=== PATIENT | male | born 1975 | race African-American/Black ===

== ENCOUNTER 2020-10-16 19:38 | Emergency (ER) | payer SELFPAY ==
[2020-10-16] MEDS ORDERED: Ketorolac Tromethamine 30 MG/ML VIAL ONE (21:42)
[2020-10-16] MEDS ORDERED: Cyclobenzaprine 10 MG TAB ONE (21:43)
== END 2020-10-16 21:48 | disposition home or self-care (01) ==
LOC: CSHERS 19:38
DX: S76.911A Strain of unspecified muscles, fascia and tendons at thigh level, right thigh, initial encounter (principal); X50.0XXA Overexertion from strenuous movement or load, initial encounter; Y93.64 Activity, baseball
CPT/HCPCS: 99283; J1885

== ENCOUNTER 2022-04-15 23:20 | Emergency (ER) | payer SELFPAY ==
[2022-04-16] MEDS ORDERED: Acetaminophen 500 MG TAB ONE (00:13)
[2022-04-16 01:46] LABS: SARS-CoV-2 NAA Rapid Test Not Detected (NotDetected)
== END 2022-04-16 00:40 | disposition home or self-care (01) ==
LOC: CSHERS 23:20
DX: J10.1 Influenza due to other identified influenza virus with other respiratory manifestations (principal); Z20.822 Contact with and (suspected) exposure to COVID-19
CPT/HCPCS: 99283

== ENCOUNTER 2025-03-08 05:25 | Emergency (ER) | payer SELFPAY ==
[2025-03-08] MEDS ORDERED: Dexamethasone 10 MG/ML VIAL ONE (05:55)
[2025-03-08 06:41] LABS: #Basophils 0.03 10x3/uL (0.0-0.2); #Eosinophils 0.17 10x3/uL (0.0-0.5); #Monocytes 0.56 10x3/uL (0.0-1.1); #Neutrophils 4.02 10x3/uL (1.5-8.4); %Basophils 0.5 % (0.0-2.0); %Eosinophils 2.6 % (0.0-6.0); %Lymphocytes 25.9 % (18.0-47.0); %Monocytes 8.6 % (0.0-10.0); %Neutrophils 62.1 % (40.0-75.0); Hematocrit 41.7 % (38.8-50.0); Hemoglobin 13.0 g/dL (13.5-17.5); Mean Corpuscular Hemoglobin 28.0 pg (27.0-33.0); Mean Corpuscular Volume 89.9 fL (81.2-95.1); Platelet Count 292 10x3/uL (150-450); Red Blood Cell (RBC) Count 4.64 10x6/uL (4.32-5.72); White Blood Cell (WBC) Count 6.48 10x3/uL (3.5-10.5)
[2025-03-08 06:56] LABS: ALT (SGPT) 24 U/L (Less than 45); AST (SGOT) 48 U/L (11-34); Albumin 3.6 g/dL (3.1-4.5); Alkaline Phosphatase 68 U/L (40-110); Anion Gap 14 mmol/L (10-20); BUN (Urea Nitrogen) 12 mg/dL (8.9-20.6); Bilirubin, Total 0.4 mg/dL (0.3-1.2); Calc. Creatinine Clearance 0 mL/min (70-130); Calcium 8.7 mg/dL (7.8-10.44); Carbon Dioxide 22 mmol/L (22-29); Chloride 106 mmol/L (98-107); Globulin 3.2 g/dL (2.4-3.5); Glucose 105 mg/dL (70-105); Potassium 3.9 mmol/L (3.5-5.1); Sodium 138 mmol/L (136-145)
== END 2025-03-08 08:31 | disposition home or self-care (01) ==
LOC: CSHERS 05:25
DX: R05.9 Cough, unspecified (principal); M79.672 Pain in left foot
CPT/HCPCS: 71045; 80053; 85025; 87428; 94640; 96374; J1100; J7620